=== PATIENT | male | born 1975 | race African-American/Black ===

== ENCOUNTER 2024-04-21 10:56 | Emergency (ER) | payer OTHER ==
[2024-04-21 11:16] VITALS: BP 121/73; PULSE 96; RESP 20; TEMP 97.6; BMI 23.6
== END 2024-04-21 13:52 | disposition home or self-care (01) ==
LOC: JER 10:56
DX: F10.20 Alcohol dependence, uncomplicated (principal); E11.65 Type 2 diabetes mellitus with hyperglycemia; Y90.9 Presence of alcohol in blood, level not specified; Z79.4 Long term (current) use of insulin
CPT/HCPCS: 82962; 99282-25

== ENCOUNTER 2024-04-21 13:54 | Inpatient (IN) | payer OTHER ==
[2024-04-21 14:26] VITALS: BMI 22.4
[2024-04-21] MEDS ORDERED: ACETAMINOPHEN 325 MG TABLET (FP) PO PRN (16:15)
[2024-04-21] MEDS ORDERED: NICOTINE POLACRILEX 2 MG LOZENGE BC PRN (16:15)
[2024-04-21] MEDS ORDERED: BISMUTH SUBSALICYLATE 524 MG/30 ML PO PRN (16:15)
[2024-04-21] MEDS ORDERED: IBUPROFEN 400 MG TABLET (FP) PO PRN (16:15)
[2024-04-21] MEDS ORDERED: chlordiazePOXIDE HCL 25 MG CAPSULE PO PRN (16:15)
[2024-04-21] MEDS ORDERED: BENZOCAINE/MENTHOL (CHLORASEPTIC ) LOZENGE MM PRN (16:15)
[2024-04-21] MEDS ORDERED: guaiFENesin 600 MG TABLET.ER (FP) PO PRN (16:15)
[2024-04-21] MEDS ORDERED: NALOXONE (NARCAN) HCL 4 MG/0.1 ML SPRAY NS PRN (16:15)
[2024-04-21] MEDS ORDERED: BENZONATATE 200 MG CAPSULE PO PRN (16:15)
[2024-04-21] MEDS ORDERED: NALOXONE HCL 0.4 MG/ML VIAL IM PRN (16:15)
[2024-04-21] MEDS ORDERED: NICOTINE POLACRILEX 2 MG GUM BUC PRN (16:15)
[2024-04-21] MEDS ORDERED: POLYETHYLENE GLYCOL (HEALTHYLAX) 3350 17 GM PACKET PO PRN (16:15)
[2024-04-21] MEDS ORDERED: ONDANSETRON *ODT* 4 MG TABLET SL PRN (16:15)
[2024-04-21] MEDS ORDERED: MAGNESIUM HYDROX 2400MG/30ML ORAL SUSPENSION 30 ML CUP PO PRN (16:15)
[2024-04-21] MEDS ORDERED: LOPERAMIDE HCL 2 MG CAPSULE PO PRN (16:15)
[2024-04-21] MEDS ORDERED: FLUTICASONE/UMECLIDIN/VILANTER(100-62.5-25 TRELEGY ELLIPTA) INAHLER IH PRN (16:34)
[2024-04-21] MEDS ORDERED: chlordiazePOXIDE HCL 25 MG CAPSULE ONE (17:10)
[2024-04-21] MEDS: chlordiazePOXIDE HCL 25 MG CAPSULE PO SCH (17:19)
[2024-04-21] MEDS ORDERED: INSULIN (NOVOLOG) ASPART 100 UNITS/ML 10ML VIAL ONE (17:24)
[2024-04-21] MEDS: INSULIN (NOVOLOG) ASPART 100 UNITS/ML 10ML VIAL SQ SCH (17:30)
[2024-04-21] MEDS: INSULIN ASPART SLIDING SCALE (NOVOLOG) 1 VIAL SQ SCH (18:04)
[2024-04-21] MEDS: THIAMINE 100 MG TABLET PO SCH (22:21)
[2024-04-21] MEDS: MELATONIN 5 MG TABLETS PO SCH (22:21)
[2024-04-21] MEDS: MOMETASONE FUROATE 220 MCG/IH INHALER IH SCH (22:22)
[2024-04-21] MEDS: INSULIN (LEVEMIR) 100 UNITS/ML UNITS SQ SCH (22:22)
[2024-04-22] MEDS ORDERED: INSULIN ASPART SLIDING SCALE (NOVOLOG) 1 VIAL SQ ONE (05:12)
[2024-04-22] MEDS: INSULIN ASPART SLIDING SCALE (NOVOLOG) 1 VIAL SQ SCH (06:16)
[2024-04-22] MEDS: PANTOPRAZOLE 40 MG TABLET PO SCH (10:15)
[2024-04-22] MEDS: PRENATAL VITAMINS W/ FOLIC ACID TABLET (FP) PO SCH (10:15)
[2024-04-22 14:41] LABS: HEMATOCRIT 40.8 % (35.4-49); HEMOGLOBIN 12.5 GM/dL (11.7-16.9); MCH 22.4 pg (25.7-33.7); MCHC 30.6 g/dl (32.0-35.9); MEAN CELL VOLUME 73.2 fl (80-96); MEAN PLT VOLUME 9.7 fl (7.5-11.1); PLATELET COUNT 210 10^3/uL (134-434); RBC 5.58 M/mm3 (4.00-5.60); RDW 15.1 % (11.9-15.9); WHITE BLOOD COUNT 3.4 K/mm3 (4.0-10.0)
[2024-04-22 14:43] LABS: CHLORIDE 104 mmol/L (98-107); POTASSIUM 4.5 mmol/L (3.5-5.1); SODIUM 138 mmol/L (136-145)
[2024-04-22 15:01] LABS: SGPT/ALT 33 U/L (13-61)
[2024-04-22 15:02] LABS: CALCIUM 9.5 mg/dL (8.5-10.1)
[2024-04-22 15:03] LABS: ALBUMIN 3.6 g/dl (3.4-5.0); ANION GAP 6 mmol/L (4-13); BLOOD UREA NITROGEN 12.5 mg/dL (7-18); CO2 28 mmol/L (21-32); GLUCOSE,RANDOM 172 mg/dL (74-106)
[2024-04-22 15:04] LABS: CREATININE 1.1 mg/dL (0.55-1.3); SGOT/AST 18 U/L (15-37)
[2024-04-22 15:07] LABS: ALK PHOS 61 U/L (45-117)
[2024-04-22 15:15] LABS: BILIRUBIN,TOTAL 0.7 mg/dL (0.2-1)
[2024-04-22] MEDS: LACTULOSE 20 GM/30 ML UDC (FOR ORAL USE ONLY) PO ONE (17:28)
[2024-04-22] MEDS: DICYCLOMINE HCL 10 MG CAPSULE PO PRN (18:15)
[2024-04-22] MEDS: MAG HYDROX/AL HYDROX/SIMETH 30 ML UNIT-DOSE CUP PO PRN (18:16)
[2024-04-22] MEDS: LACTULOSE 20 GM/30 ML UDC (FOR ORAL USE ONLY) PO SCH (22:15)
[2024-04-23] MEDS: chlordiazePOXIDE HCL 25 MG CAPSULE PO SCH (05:20)
[2024-04-23] MEDS: ALBUTEROL SO4 HFA INHALER IH PRN (22:29)
[2024-04-24] MEDS ORDERED: chlordiazePOXIDE HCL 10 MG CAPSULE PO PRN
[2024-04-24] MEDS: chlordiazePOXIDE HCL 10 MG CAPSULE PO SCH (05:51)
[2024-04-24] MEDS: METHOCARBAMOL 500 MG TABLET PO PRN (22:41)
[2024-04-25] MEDS: chlordiazePOXIDE HCL 10 MG CAPSULE PO SCH (05:17)
[2024-04-25] MEDS ORDERED: INSULIN ASPART SLIDING SCALE (NOVOLOG) 1 VIAL SQ ONE (06:38)
[2024-04-25] MEDS: LACTULOSE 20 GM/30 ML UDC (FOR ORAL USE ONLY) PO SCH (10:11)
[2024-04-25] MEDS: IBUPROFEN 600 MG TABLET (FP) PO PRN (17:10)
[2024-04-25] MEDS: hydrOXYzine PAMOATE 25 MG CAPSULE (FP) PO PRN (20:04)
[2024-04-25] MEDS: INSULIN (NOVOLOG) ASPART 100 UNITS/ML 10ML VIAL SQ ONE (22:07)
[2024-04-26] MEDS: chlordiazePOXIDE HCL 10 MG CAPSULE PO ONE (05:30)
[2024-04-26 06:43] VITALS: RESP 16; TEMP 97.8
[2024-04-26 09:07] VITALS: BP 109/66; PULSE 95
== END 2024-04-26 11:14 | disposition other institution (70) | DRG 897 ==
LOC: YASAS 13:54 → Y3N 17:12
PROVIDERS: ADMIT Allergy & Immunology; ATTEND Surgery
PROC: HZ2ZZZZ Detoxification Services for Substance Abuse Treatment (ICD-10-PCS; principal; 2024-04-21)
DX: F10.230 Alcohol dependence with withdrawal, uncomplicated (principal); Z59.00 Homelessness unspecified; F17.290 Nicotine dependence, other tobacco product, uncomplicated; F31.9 Bipolar disorder, unspecified; D35.2 Benign neoplasm of pituitary gland; G47.33 Obstructive sleep apnea (adult) (pediatric); J45.909 Unspecified asthma, uncomplicated; E11.65 Type 2 diabetes mellitus with hyperglycemia; Z79.4 Long term (current) use of insulin; Z91.199 Patient's noncompliance with other medical treatment and regimen due to unspecified reason; Z87.11 Personal history of peptic ulcer disease; Z56.0 Unemployment, unspecified
CPT/HCPCS: 36415; 80053; 80305; 80307; 82140; 82962; 83036; 85027; 86780; 93005; 93010

== ENCOUNTER 2024-08-12 10:47 | Inpatient (IN) | payer BC ==
[2024-08-12 11:09] VITALS: BMI 22.9
[2024-08-12] MEDS ORDERED: P-EPHED 60MG/TRIPROLIDI 2.5MG TABLET PO PRN (11:51)
[2024-08-12] MEDS ORDERED: BENZOCAINE/MENTHOL (CHLORASEPTIC ) LOZENGE MM PRN (11:51)
[2024-08-12] MEDS ORDERED: MAGNESIUM HYDROX 2400MG/30ML ORAL SUSPENSION 30 ML CUP PO PRN (11:51)
[2024-08-12] MEDS ORDERED: POLYETHYLENE GLYCOL (HEALTHYLAX) 3350 17 GM PACKET PO PRN (11:51)
[2024-08-12] MEDS ORDERED: guaiFENesin 600 MG TABLET.ER (FP) PO PRN (11:51)
[2024-08-12] MEDS ORDERED: NALOXONE (NARCAN) HCL 4 MG/0.1 ML SPRAY NS PRN (11:51)
[2024-08-12] MEDS ORDERED: ONDANSETRON *ODT* 4 MG TABLET SL PRN (11:51)
[2024-08-12] MEDS ORDERED: LOPERAMIDE HCL 2 MG CAPSULE PO PRN (11:51)
[2024-08-12] MEDS ORDERED: ACETAMINOPHEN 325 MG TABLET (FP) PO PRN (11:51)
[2024-08-12] MEDS ORDERED: DICYCLOMINE HCL 10 MG CAPSULE PO PRN (11:51)
[2024-08-12] MEDS ORDERED: BENZONATATE 200 MG CAPSULE PO PRN (11:51)
[2024-08-12] MEDS ORDERED: NICOTINE POLACRILEX 2 MG LOZENGE BC PRN (11:53)
[2024-08-12] MEDS ORDERED: levETIRAcetam 500 MG TABLET (FP) PO ONE (13:02)
[2024-08-12] MEDS ORDERED: propRANOLol HCL 10 MG TABLET ONE (13:02)
[2024-08-12] MEDS: propRANOLol HCL 10 MG TABLET PO ONE (13:04)
[2024-08-12] MEDS: levETIRAcetam 500 MG TABLET (FP) PO SCH (13:05)
[2024-08-12] MEDS: BISMUTH SUBSALICYLATE 262 MG/15 ML BTL PO PRN (15:06)
[2024-08-12] MEDS ORDERED: INSULIN ASPART SLIDING SCALE (NOVOLOG) 1 VIAL SQ SCH (16:30)
[2024-08-12] MEDS: INSULIN ASPART SLIDING SCALE (NOVOLOG) 1 VIAL SQ SCH (17:14)
[2024-08-12] MEDS: THIAMINE 100 MG TABLET PO SCH (21:58)
[2024-08-12] MEDS: METHOCARBAMOL 500 MG TABLET PO PRN (21:58)
[2024-08-12] MEDS: hydrOXYzine PAMOATE 25 MG CAPSULE (FP) PO PRN (21:58)
[2024-08-12] MEDS: MELATONIN 5 MG TABLETS PO SCH (21:59)
[2024-08-12] MEDS: MAG HYDROX/AL HYDROX/SIMETH 30 ML UNIT-DOSE CUP PO PRN (21:59)
[2024-08-13] MEDS ORDERED: chlordiazePOXIDE HCL 25 MG CAPSULE PO PRN (09:37)
[2024-08-13] MEDS: PANTOPRAZOLE 40 MG TABLET PO SCH (10:35)
[2024-08-13] MEDS: IBUPROFEN 600 MG TABLET (FP) PO PRN (10:36)
[2024-08-13] MEDS: PRENATAL VITAMINS W/ FOLIC ACID TABLET (FP) PO SCH (10:36)
[2024-08-13] MEDS: ALLOPURINOL 100 MG TABLET (FP) PO SCH (10:36)
[2024-08-13] MEDS: chlordiazePOXIDE HCL 25 MG CAPSULE PO SCH (10:37)
[2024-08-13 14:30] LABS: HEMATOCRIT 40.8 % (35.4-49); HEMOGLOBIN 12.3 GM/dL (11.7-16.9); MCH 22.2 pg (25.7-33.7); MCHC 30.3 g/dl (32.0-35.9); MEAN CELL VOLUME 73.3 fl (80-96); MEAN PLT VOLUME 9.3 fl (7.5-11.1); PLATELET COUNT 255 10^3/uL (134-434); RBC 5.56 M/mm3 (4.00-5.60); RDW 14.2 % (11.9-15.9); WHITE BLOOD COUNT 3.7 K/mm3 (4.0-10.0)
[2024-08-13 14:33] LABS: POTASSIUM 4.4 mmol/L (3.5-5.1)
[2024-08-13] MEDS: NICOTINE POLACRILEX 4 MG GUM BUC PRN (14:39)
[2024-08-13 14:43] LABS: ALBUMIN 3.4 g/dl (3.4-5.0); BLOOD UREA NITROGEN 8.9 mg/dL (7-18)
[2024-08-13 14:45] LABS: BILIRUBIN,TOTAL 0.9 mg/dL (0.2-1); CREATININE 1.1 mg/dL (0.55-1.3)
[2024-08-13 14:46] LABS: CALCIUM 9.3 mg/dL (8.5-10.1)
[2024-08-13 14:47] LABS: TOT PROT 6.5 g/dl (6.4-8.2)
[2024-08-14] MEDS: IBUPROFEN 400 MG TABLET (FP) PO PRN (06:06)
[2024-08-14] MEDS: INSULIN (LEVEMIR) 100 UNITS/ML UNITS SQ SCH (22:29)
[2024-08-14] MEDS: MOMETASONE FUROATE 220 MCG/IH INHALER IH SCH (22:30)
[2024-08-15] MEDS: chlordiazePOXIDE HCL 25 MG CAPSULE PO SCH (05:56)
[2024-08-15] MEDS: ALBUTEROL SO4 HFA INHALER IH PRN (10:39)
[2024-08-16] MEDS ORDERED: chlordiazePOXIDE HCL 10 MG CAPSULE PO PRN
[2024-08-16] MEDS: chlordiazePOXIDE HCL 10 MG CAPSULE PO SCH (05:34)
[2024-08-16] MEDS ORDERED: INSULIN (NOVOLOG) ASPART 100 UNITS/ML 10ML VIAL ONE (11:04)
[2024-08-16] MEDS: NICOTINE POLACRILEX 2 MG LOZENGE BC PRN (21:31)
[2024-08-17] MEDS: chlordiazePOXIDE HCL 10 MG CAPSULE PO SCH (05:44)
[2024-08-17] MEDS: NALOXONE (NYS OPIOID OVERDOSE PROGRAM) 4 MG/0.1 ML SPRAY NS SCH (09:51)
[2024-08-18] MEDS: chlordiazePOXIDE HCL 10 MG CAPSULE PO ONE (05:31)
[2024-08-18 06:29] VITALS: TEMP 98.4
[2024-08-18 09:35] VITALS: BP 108/63; PULSE 92; RESP 18
== END 2024-08-18 09:51 | disposition home or self-care (01) | DRG 775 ==
LOC: YASAS 10:47 → Y6N 13:11
PROVIDERS: ADMIT Allergy & Immunology; ATTEND Allergy & Immunology
PROC: HZ2ZZZZ Detoxification Services for Substance Abuse Treatment (ICD-10-PCS; principal; 2024-08-12)
DX: F10.230 Alcohol dependence with withdrawal, uncomplicated (principal); F16.10 Hallucinogen abuse, uncomplicated; F31.9 Bipolar disorder, unspecified; F10.282 Alcohol dependence with alcohol-induced sleep disorder; F10.24 Alcohol dependence with alcohol-induced mood disorder; F41.9 Anxiety disorder, unspecified; D35.2 Benign neoplasm of pituitary gland; G47.00 Insomnia, unspecified; G47.33 Obstructive sleep apnea (adult) (pediatric); J45.20 Mild intermittent asthma, uncomplicated; M10.9 Gout, unspecified; E11.9 Type 2 diabetes mellitus without complications; Z79.4 Long term (current) use of insulin; Z59.00 Homelessness unspecified
CPT/HCPCS: 36415; 80053; 80305; 80307; 82962; 85027; 86780